=== PATIENT | male | born 1985 ===

== ENCOUNTER 2019-07-09 11:10 | Emergency (ER) | payer BC ==
[2019-07-09] MEDS ORDERED: Sodium Chloride 0.9% 2.5 ML Syringe FLUSH PRN (11:11)
[2019-07-09] MEDS ORDERED: Sodium Chloride 0.9% 10 ML Syringe FLUSH PRN (11:11)
[2019-07-09] MEDS ORDERED: Sodium Chloride 0.9% 10 ML SDV IV PRN (11:11)
--- NOTE | 2019-07-09 11:27 | CT ---
Head CT Technique: Multiple axial sections through the brain were obtained. Intravenous contrast was not utilized. Comparison: No prior intracranial imaging is available. Findings: Ventricles along with basal cisterns and sulci over the convexities are within normal limits for the patient's age. No abnormal parenchymal densities are seen. No evidence of intracranial hemorrhage. No midline shift or mass-effect is seen. Bone window settings were reviewed. Minimal areas mucosal thickening is seen within the ethmoid, sphenoid and maxillary sinuses believed to represent minimal chronic sinusitis. Mastoid sinuses are clear. No acute calvarial abnormality is appreciated. Impression: 1. Nothing acute is appreciated on noncontrast head CT study. 2. Minimal sinus findings as described above. Note: If patient has concerning intracranial symptoms, MRI could then be considered. Diagnostic code #2 This report was dictated in MDT
--- NOTE | 2019-07-09 11:30 | EDM.PDOC ---
ED HPI GENERAL MEDICAL PROBLEM - General Chief Complaint: Neuro Symptoms/Deficits Stated Complaint: STROKE CODE Time Seen by Provider: 07/09/19 11:15 Source of Information: Reports: Patient History Limitations: Reports: No Limitations - History of Present Illness INITIAL COMMENTS - FREE TEXT/NARRATIVE: This is a 33-year-old male who presents the emergency room chief complaint of new onset of expressive a fascia while seeing the patient in clinic. He denies any history of previous event. Patient is now baseline at this time. Patient was unable to communicate for approximately 3 to 5 minutes Onset: Today Duration: Minutes: Location: Reports: Head Severity: Moderate Improves with: Reports: None Worsens with: Reports: None Associated Symptoms: Reports: Headaches - Related Data Allergies Allergy/AdvReac Type Severity Reaction Status Date / Time No Known Allergies Allergy Verified 07/09/19 11:52 Home Meds: Home Meds Cetirizine [ZyrTEC] 5 mg PO DAILY 07/09/19 [History] ED ROS GENERAL - Review of Systems Review Of Systems: See Below Constitutional: Reports: No Symptoms HEENT: Reports: No Symptoms Respiratory: Reports: No Symptoms Cardiovascular: Reports: No Symptoms Endocrine: Reports: No Symptoms GI/Abdominal: Reports: No Symptoms : Reports: No Symptoms Musculoskeletal: Reports: No Symptoms Skin: Reports: No Symptoms Neurological: Reports: Headache, Trouble Speaking, Change in Speech Psychiatric: Reports: No Symptoms Hematologic/Lymphatic: Reports: No Symptoms Immunologic: Reports: No Symptoms ED EXAM, NEURO - Physical Exam Exam: See Below Exam Limited By: No Limitations General Appearance: Alert, WD/WN, No Apparent Distress Eye Exam: Bilateral Eye: Normal Fundi, Normal Inspection, PERRL Ears: Normal External Exam, Normal Canal, Hearing Grossly Normal Nose: Normal Inspection, Normal Mucosa Throat/Mouth: Normal Inspection, Normal Lips, Normal Teeth, Normal Gums Head Exam: Atraumatic, Normocephalic Neck: Normal Inspection, Supple, Non-Tender, Full Range of Motion Respiratory/Chest: No Respiratory Distress, Lungs Clear, Normal Breath Sounds Cardiovascular: Normal Peripheral Pulses, Regular Rate, Rhythm GI/Abdominal: Normal Bowel Sounds, Soft, Non-Tender (Male) Exam: Normal Inspection, Deferred Rectal (Males) Exam: Normal Exam, Deferred Neurological: Alert, Normal Mood/Affect, Normal Dorsiflexion, CN II-XII Intact, Normal Gait, Normal Reflexes, No Motor/Sensory Deficits, Oriented x 3 Back Exam: Normal Inspection, Full Range of Motion Extremities: Normal Inspection, Normal Range of Motion Psychiatric: Normal Affect, Normal Mood Skin Exam: Warm, Dry, Intact, Normal Color EKG INTERPRETATION [place]: Normal QRS: RBBB (Normal sinus rhythm rate of 91, right bundle branch block, no evidence of acute [place]) ST-T: Normal QT: Normal Course - Vital Signs Text/Narrative:: This 33-year-old gentleman was 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 Patient was unable to speak. Patient stated he had a episode of numbness in his right hand. Then progressed to not being able to talk. Patient describes an expressive aphasia. Patient has a history of migraine headaches in the past but is never had an expressive aphasia in the past. Patient states sometimes it is migraines he has numbness in his hands. Patient denies headache at this time. Patient was brought in with blood pressure 190/ 100. Patient has no previous history of high blood pressure. Upon evaluation patient having a no problems speaking. HEENT is normal Chest normal S1-S2 Lungs are clear to auscultation Neuro exam is completely normal. CT scan of the head is negative. Clair the case with the hospitalist on-call patient will be admitted to telemetry /observation Diagnosis is atypical migraines/possible CVA Last Recorded V/S: Last Vital Signs Temp 96.3 F L 07/09/19 11:10 Pulse 109 H 07/09/19 11:10 Resp 16 07/09/19 11:10 BP 197/128 H 07/09/19 11:10 Pulse Ox 96 07/09/19 11:10 - Orders/Labs/Meds Orders: Active Orders 24 hr Category Date Time Status Assess Neurological Status [RC] ASDIRECTED Care 07/09/19 11:11 Active Bedrest [RC] ASDIRECTED Care 07/09/19 11:11 Active Blood Glucose Check, Bedside [RC] ONETIME Care 07/09/19 11:11 Active Cardiac Monitoring [RC] . DIRECTED Care 07/09/19 11:11 Active EKG Documentation Completion [RC] STAT Care 07/09/19 11:11 Active Height and Weight [RC] UPON Care 07/09/19 11:11 Active Initiate Acute Stroke Protocol [RC] STAT Care 07/09/19 11:11 Active NIH Stroke Scale [RC] ASDIRECTED Care 07/09/19 11:11 Active Nursing Bedside Swallow Screen [RC] ASDIRECTED Care 07/09/19 11:11 Active Oxygen Therapy [RC] ASDIRECTED Care 07/09/19 11:11 Active Stroke Education, General [RC] Click to Edit Care 07/09/19 11:11 Active Vital Signs [RC] Q15M Care 07/09/19 11:11 Active Ang Head wo Cont [MR] Urgent Exams 07/09/19 11:50 Ordered Ang Neck w Cont [MR] Urgent Exams 07/09/19 11:50 Ordered Brain w wo Cont [MR] Urgent Exams 07/09/19 11:50 Ordered COMPREHENSIVE METABOLIC PN,CMP [CHEM] Stat Lab 07/09/19 11:05 Results INR,PT,PROTHROMBIN TIME [COAG] Stat Lab 07/09/19 11:05 Received PTT,PARTIAL THROMBOPLSTIN TIME [COAG] Stat Lab 07/09/19 11:05 Received TROPONIN I [CHEM] Stat Lab 07/09/19 11:05 Results TSH [CHEM] Stat Lab 07/09/19 11:05 Results UA RFX TINO AND CULT IF INDIC [URIN] Stat Lab 07/09/19 11:11 Ordered Sodium Chloride 0.9% [Normal Saline] Med 07/09/19 11:11 Active 10 ml IV ASDIRECTED PRN Sodium Chloride 0.9% [Saline Flush] Med 07/09/19 11:11 Active 10 ml FLUSH ASDIRECTED PRN Sodium Chloride 0.9% [Saline Flush] Med 07/09/19 11:11 Active 2.5 ml FLUSH ASDIRECTED PRN Peripheral IV Insertion Adult [OM.PC] Stat Oth 07/09/19 11:11 Ordered Peripheral IV Insertion Adult [OM.PC] Stat Oth 07/09/19 11:11 Ordered Medication Orders Sodium Chloride (Saline Flush) 10 ml FLUSH ASDIRECTED PRN PRN Reason: Keep Vein Open Sodium Chloride (Saline Flush) 2.5 ml FLUSH ASDIRECTED PRN PRN Reason: Keep Vein Open Sodium Chloride (Normal Saline) 10 ml IV ASDIRECTED PRN PRN Reason: IV Use Labs: Laboratory Tests 07/09/19 07/09/19 Range/Units 11:05 11:05 WBC 9.41 (4.0-11.0) K/uL RBC 5.49 (4.50-5.90) M/uL Hgb 16.1 (13.0-17.0) g/dL Hct 46.0 (38.0-50.0) % MCV 83.8 (80.0-98.0) fL MCH 29.3 (27.0-32.0) pg MCHC 35.0 (31.0-37.0) g/dL RDW Std Deviation 37.0 (28.0-62.0) fl RDW Coeff of Jose Manuel 12 (11.0-15.0) % Plt Count 268 (150-400) K/uL MPV 9.60 (7.40-12.00) fL Neut % (Auto) 46.3 L (48.0-80.0) % Lymph % (Auto) 40.5 H (16.0-40.0) % [place] % (Auto) 9.9 (0.0-15.0) % Eos % (Auto) 2.9 (0.0-7.0) % Baso % (Auto) 0.4 (0.0-1.5) % Neut # (Auto) 4.4 (1.4-5.7) K/uL Lymph # (Auto) 3.8 H (0.6-2.4) K/uL [place] # (Auto) 0.9 H (0.0-0.8) K/uL Eos # (Auto) 0.3 (0.0-0.7) K/uL Baso # (Auto) 0.0 (0.0-0.1) K/uL Nucleated RBC % 0.0 /100WBC Nucleated RBCs # 0 K/uL Sodium 140 (136-148) mmol/L Potassium 3.5 (3.5-5.1) mmol/L Chloride 103 (98-107) mmol/L Carbon Dioxide 27.9 (21.0-32.0) mmol/L BUN 18 (7.0-18.0) mg/dL Creatinine 1.3 (0.8-1.3) mg/dL Est Cr Clr Drug Dosing TNP Estimated GFR (MDRD) > 60.0 ml/min Glucose 97 (74-106) mg/dL Calcium 8.8 (8.5-10.1) mg/dL Total Bilirubin 0.5 (0.2-1.0) mg/dL AST 40 H (15-37) IU/L ALT 72 H (14-63) IU/L Alkaline Phosphatase 66 (46-116) U/L Total Protein 7.9 (6.4-8.2) g/dL Albumin 4.5 (3.4-5.0) g/dL Globulin 3.4 (2.6-4.0) g/dL Albumin/Globulin Ratio 1.3 (0.9-1.6) TSH 3rd Generation 0.96 (0.36-3.74) uIU/mL Meds: Medications Generic Name Dose Route Start Last Admin Trade Name Freq PRN Reason Stop Dose Admin Sodium Chloride 10 ml 07/09/19 11:11 Saline Flush FLUSH ASDIRECTED PRN Keep Vein Open Sodium Chloride 2.5 ml 07/09/19 11:11 Saline Flush FLUSH ASDIRECTED PRN Keep Vein Open Sodium Chloride 10 ml 07/09/19 11:11 Normal Saline IV ASDIRECTED PRN IV Use Departure - Departure Time of Disposition: 12:02 Disposition: Refer to Observation Clinical Impression: Atypical migraine - Discharge Information Forms: ED Department Discharge Sepsis Event Note - Focused Exam Vital Signs: Vital Signs Temp Pulse Resp BP Pulse Ox 07/09/19 11:10 96.3 F L 109 H 16 197/128 H 96 Date Exam was Performed: 07/09/19 Time Exam was Performed: 11:57
--- NOTE | 2019-07-09 11:36 | CR ---
Chest: Portable view of the chest was obtained. Comparison: No prior chest imaging is available. Heart size and mediastinum are normal. Lungs are clear with no acute parenchymal change. Bony structures are grossly intact. Impression: 1. Nothing acute is seen on portable chest x-ray. Diagnostic code #1 This report was dictated in MDT
[2019-07-09 11:49] LABS: BLOOD UREA NITROGEN,BUN 18 mg/dL (7.0-18.0); CARBON DIOXIDE,CO2 27.9 mmol/L (21.0-32.0); CHLORIDE,CL 103 mmol/L (98-107); GLUCOSE RANDOM 97 mg/dL (74-106); POTASSIUM,K 3.5 mmol/L (3.5-5.1); SODIUM,NA 140 mmol/L (136-148)
== END 2019-07-09 12:55 | disposition other institution (70) ==
LOC: MW.ED 11:10
DX: G43.909 Migraine, unspecified, not intractable, without status migrainosus (principal)
CPT/HCPCS: 36415; 70450; 70450-26; 71045; 71045-26; 80053; 81003; 84443; 84484; 85025; 85610; 85730; 93005; 99284; 99285-25